=== PATIENT | female | born 1980 ===

== ENCOUNTER → 2016-12-09 | Day surgery (SDC) | payer OTHER ==
[~2016-12-09] VITALS: Ht 165.1 cm; Wt 63.7 kg
[~2016-12-09] MED LIST: DEPO-PROVE150 MG/11 IM; LINZESS290 MCG PO; MOTRIN800 MG PO; NORCO 5-325 TA1 EACH PO
--- NOTE | ~2016-12-09 | OR ---
PATIENT'S NAME: IRIS LAO [facility] AGE: 36 Y [address] ROOM: [place] [id number] LOCATION: [facility] ADMIT DATE: 12/09/2016 OR/Procedure Report DISCHARGE DATE: FAMILY PHYSICIAN: Lisa Mehta MD ATTENDING PHYSICIAN: SRIKANTH ESTRADA SURGEON: Srikanth Estrada MD [place] WORKER: ELIDIA Bermeo. DATE OF PROCEDURE: 12/09/2016 PREOPERATIVE DIAGNOSIS: Pelvic pain. POSTOPERATIVE DIAGNOSES: 1. Pelvic pain. 2. Endometriosis. PROCEDURE PERFORMED: Laparoscopic CO2 laser ablation of endometriosis. ANESTHESIA: General. FINDINGS: Two small areas of endometriosis in the posterior cul-de-sac. Normal fallopian tubes and ovaries bilaterally. Normal uterus. Colon noted to be full of stool. ESTIMATED BLOOD LOSS: Minimal. COMPLICATIONS: None. INDICATIONS: The patient is a 36-year-old female with chronic pelvic pain. She has tried oral contraceptive pills as well as Depo-Provera without relief. Her symptoms were consistent with possible endometriosis. Therefore, diagnostic laparoscopy was discussed and recommended. Please see prior consent note. DESCRIPTION OF PROCEDURE: The patient was taken to the operating room where she was placed under general anesthesia without complications. She was then placed in dorsal lithotomy position. She was prepped and draped in the usual sterile fashion. A time-out was performed. A speculum was placed in the patient's vagina. The cervix was visualized, and a Hulka tenaculum was placed. The bladder was drained of about 300 mL of clear urine. The speculum was removed. Gloves were changed. Attention was then placed to the patient's abdomen. Marcaine 0.25% with epinephrine was injected infraumbilically. A 5 mm incision was made. A Veress needle was placed through the incision. The saline drop test did not pass. This was attempted twice. Then, direct entry with the trocar under direct visualization was then performed, and intraabdominal placement was confirmed. The abdomen was insufflated to 15 PATIENT'S NAME: IRIS LAO [facility] AGE: 36 Y [address] ROOM: [place] [address] LOCATION: [facility] ADMIT DATE: 12/09/2016 OR/Procedure Report DISCHARGE DATE: FAMILY PHYSICIAN: Lisa Mehta MD ATTENDING PHYSICIAN: SRIKANTH ESTRADA. A 5 mm trocar was then placed in the left lower quadrant. The uterus was anteverted, and 2 small areas of endometriosis were noted in the posterior cul-de-sac. The uterus appeared normal. The ovaries and fallopian tubes appeared normal bilaterally. The rectum appeared full of stool, but no spots of endometriosis were noted. An additional 5 mm trocar was placed in the right lower quadrant. Using the CO2 OmniGuide laser at a power of 4, the areas of endometriosis were ablated. Irrigation was performed. No other lesions were noted. The camera were removed. The trocars were removed, and the abdomen was desufflated. The incisions were closed with 4-0 Vicryl in a subcuticular fashion, Steri-Strips, and Band-Aids. Instrument, sponge, and needle counts were correct at the conclusion of the case. DISPOSITION: The patient is stable, to PACU. MD EVONNE CABRERA/evgeny /[id number] d: 12/09/16 1837 t: 12/15/16 1704, OPERATIVE SUMMARY
== END | disposition disaster alternative care site (69) ==
LOC: GPOC 12-05 14:00 → GSDC 07:02 → GPOC 14:00
PROC: 0UQ Female Reproductive System, Repair (ICD-10-PCS; principal; 2016-12-09)
DX: N80.0 Endometriosis of uterus (principal); Z98.890 Other specified postprocedural states
CPT/HCPCS: J1100; J2001; J2405; J7030

== ENCOUNTER → 2017-02-07 | Outpatient (CLI) | payer OTHER | END | disposition disaster alternative care site (69) | LOC: GRAD 06:56 | DX: R10.31 Right lower quadrant pain (principal); K63.89 Other specified diseases of intestine | CPT/HCPCS: Q9967 ==